=== PATIENT | female | born 1935 | race African-American/Black ===

== ENCOUNTER 2018-03-16 16:34 | Emergency (ER) | payer MEDICARE ==
[~2018-03-16] VITALS: Ht 160 cm; Wt 63.5 kg
[2018-03-16] MEDS ORDERED: ONDANSETRON HCL INJ 2 MG/ML VIAL IV STA ×2 (18:17→22:15)
[2018-03-16] MEDS ORDERED: SODIUM CHLORIDE 0.9% 1000ML 1,000 ML IV SCH (18:30)
[2018-03-16] MEDS ORDERED: MORPHINE SULFATE INJ 4 MG/ML INJ IV ONE (18:30)
--- NOTE | 2018-03-16 20:01 | Diagnostic Imaging Report ---
EXAMINATION: CXR 1 VEW - HOPD INDICATION: Nausea and vomiting. Headache. COMPARISON: None FINDINGS: TUBES and LINES: None. LUNGS: Lungs are moderate inflated. 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 Bilateral peribronchial cuffing. There is no evidence of pneumonia or pulmonary edema. PLEURA: No pleural effusion or pneumothorax. HEART AND MEDIASTINUM: The cardiomediastinal silhouette is unremarkable. There are atherosclerotic calcifications within the aorta. BONES AND SOFT TISSUES: No acute osseous lesion. Soft tissues are unremarkable. UPPER ABDOMEN: No free air under the diaphragm. There are cholecystectomy clips. IMPRESSION: Bilateral bronchial cuffing, likely viral etiology or reactive airway. Signed by: Dr. Vel Peguero M.D. on 03/16/2018 7:58 PM
--- NOTE | 2018-03-16 20:03 | Diagnostic Imaging Report ---
EXAMINATION: Head CT without contrast. HISTORY:Headache, nausea and vomiting. COMPARISON:None. TECHNIQUE: Multidetector axial images were obtained from the foramen magnum to the vertex without contrast. The images were reconstructed using brain and bone algorithms. Thin section brain images were reformatted into coronal and sagittal planes. Dose modulation, iterative reconstruction, and/or weight based adjustment of the mA/kV was utilized to reduce the radiation dose to as low as reasonably achievable. Intravenous contrast: None IMAGE QUALITY: Suboptimal evaluation due to motion-related streak artifacts. FINDINGS: Skull/scalp: No lytic or blastic. lesions. No surgical changes. Incidental atherosclerotic calcification of peripheral scalp vessels. Parenchyma: Suboptimal evaluation due to motion-related streak artifacts, despite the limitation no gross acute intracranial hemorrhage, mass or major vascular territorial infarct. Focal hypodensity in the left lateral aspect of midbrain and jeanna represents age indeterminate lacunar infarct versus an artifact. Nonspecific few, scattered supratentorial white matter patchy hypodensity are likely related to small vessel ischemic changes. Arteries: No density suggestive of thrombosis. Dural sinuses: No abnormal density suggestive of thrombosis. Ventricles: No hydrocephalus or displacement. Extra-axial spaces: No abnormal density. Brain volume: Generalized age-related cerebral volume loss. Craniocervical junction: No mass, Chiari malformation, or basilar invagination. Sella: No mass. Paranasal/mastoid sinuses: Imaged portions unremarkable. IMPRESSION: 1. Suboptimal evaluation due to motion-related streak artifacts, despite the limitation no gross acute intracranial abnormality. 2. Age indeterminate lacunar infarct vs artifact in left lateral aspect of midbrain/jeanna. 3. Generalized age-related cerebral volume loss and mild supratentorial white matter microvascular ischemic changes. Signed by: Dr. Debby Moody M.D. on 03/16/2018 7:59 PM
--- NOTE | 2018-03-16 20:07 | Diagnostic Imaging Report ---
EXAM: CT Abdomen and Pelvis WITHOUT contrast INDICATION: Complaining of nausea and vomiting headache. COMPARISON: None. TECHNIQUE: Abdomen and pelvis were scanned utilizing a multidetector helical scanner from the lung base to the pubic symphysis without administration of IV contrast. Absence of intravenous contrast decreases sensitivity for detection of focal lesions and vascular pathology. Coronal and sagittal reformations were obtained. Routine protocol was performed. IV CONTRAST: None ORAL CONTRAST: Water COMPLICATIONS: None. Allergic to iodine. RADIATION DOSE: Total DLP: 713.49 mGy*cm Estimated effective dose: (DLP x 0.015 x size factor) mSv CTDIvol has been reviewed. It is below the limits set by the Radiation Protocol Committee (RPC). FINDINGS: LINES and TUBES: None. LOWER THORAX: Moderate coronary artery calcifications. HEPATOBILIARY: No focal hepatic lesions. There is intra- and extra- hepatic biliary dilation likely post cholecystectomy resevoir effect. Common bile duct measures 1.1 cm with gradual tapering into the pancreatic head. GALLBLADDER: There are cholecystectomy clips. SPLEEN: No splenomegaly. PANCREAS: No focal masses or ductal dilatation. Pancreatic atrophy. ADRENALS: No adrenal nodules KIDNEYS/URETERS: Bilateral kidneys are mildly malrotated. No hydronephrosis. No cystic or solid mass lesions. No stones. GI TRACT: Moderate amount of stool in the rectosigmoid. Mild gastric antral wall thickening. Mild wall thickening of the one on. No abnormal distention, wall thickening, or evidence of bowel obstruction. Appendix is not clearly identified. There is however no fat stranding or adenopathy in the right lower quadrant to suggest appendicitis. PELVIC ORGANS/BLADDER: Unremarkable. LYMPH NODES: No lymphadenopathy. Scattered benign-appearing retroperitoneal lymph nodes. Prominent but benign-appearing bilateral inguinal lymph nodes. VESSELS: There is moderate atherosclerotic disease in the aorta and major arterial branches. PERITONEUM / RETROPERITONEUM: No free air or fluid. BONES: There are degenerative changes in the lumbar spine. SOFT TISSUES: There is a fat containing umbilical hernia. Anterior abdominal wall diastases with fatty atrophy of the rectus abdominis muscle. IMPRESSION: 1. Mild gastric antral wall thickening. This likely represents gastritis. 2. Common bile duct is dilated measuring 1.1 cm and is likely related to postcholecystectomy reservoir effect. Correlate with appropriate liver function test. Signed by: Dr. Vel Peguero M.D. on 03/16/2018 8:04 PM
[2018-03-16] MEDS ORDERED: KETOROLAC TROMETHAMINE 30 MG/ML VIAL IV STA (20:26)
[2018-03-16] MEDS ORDERED: METOCLOPRAMIDE HCL 10 MG/2ML VIAL IV ONE (20:30)
[2018-03-16] MEDS ORDERED: DIPHENHYDRAMINE HCL INJ 50 MG/ML VIAL IV ONE (20:30)
[2018-03-16 22:43] VITALS: BP 132/74
== END 2018-03-16 23:15 | disposition home or self-care (01) ==
LOC: FSED 16:34
DX: G43.909 Migraine, unspecified, not intractable, without status migrainosus (principal)
CPT/HCPCS: 70450; 71045; 74176; 80053; 81003; 82553; 84484; 85025; 93005; 99284; J1200; J1885; J2270; J2405; J2765; 74177

== ENCOUNTER 2018-07-07 16:49 | Emergency (ER) | payer MEDICARE ==
[~2018-07-07] VITALS: Ht 160 cm; Wt 63.5 kg
--- OUTSIDE RECORDS SUMMARY | 2018-07-07 16:52 | XMS REPORT ---
Author Author [facility] Address Unknown Phone Unavailable Care Team Providers Care Millwright Helper Name Role Phone Kranthi DURAN Unavailable Unavailable Problems This patient has no known problems. Allergies, Adverse Reactions, Alerts This patient has no known allergies or adverse reactions. Medications This patient has no known medications. Results Test Description Test Time Test Comments Text Results Atomic Results Result Comments CT ABD/PEL WITH CONTRAST-HOPD 2018-03-16 19:58:00 [facility] [address] [place] [address] Patient Name: BRIANNA LOVETT MR #: [id number] : 1935 Age/Sex: 82/F Req #: [id number] Adm Physician: Ordered by: GABBY WAGNER MD Report #: [id number] Location: [facility] Room/Bed: Procedure: [id number] HOPD/CT ABD/PEL WITH CONTRAST- HOPD Exam Date: 03/16/18 Exam Time: 1929 REPORT STATUS: Signed EXAM: CT Abdomen and Pelvis WITHOUT contrast INDICATION: Complaining of nausea and vomiting headache. COMPARISON: None. TECHNIQUE: Abdomen and pelvis were scanned utilizing a multidetector helical scanner from the lung base to the pubic symphysis without administration of IV contrast. Absence of intravenous contrast decreases sensitivity for detection of focal lesions and vascular pathology. Coronal and sagittal reformations were obtained. Routine protocol was performed. IV CONTRAST: None ORAL CONTRAST: Water COMPLICATIONS: None. Allergic to iodine. RADIATION DOSE: Total DLP: 713.49 mGy*cm Estimated effective dose: (DLP x 0.015 x size factor) mSv CTDIvol has been reviewed. It is below the limits set by the Radiation Protocol Committee (RPC). FINDINGS: LINES and TUBES: None. LOWER THORAX: Moderate coronary artery calcifications. HEPATOBILIARY: No focal hepatic lesions. There is intra- and extra- hepatic biliary dilation likely post cholecystectomy resevoir effect. Common bile duct measures 1.1 cm with gradual tapering into the pancreatic head. GALLBLADDER: There are cholecystectomy clips. SPLEEN: No splenomegaly. PANCREAS: No focal masses or ductal dilatation. Pancreatic atrophy. ADRENALS: No adrenal nodules KIDNEYS/URETERS: Bilateral kidneys are mildly malrotated. No hydronephrosis. No cystic or solid mass lesions. No stones. GI TRACT: Moderate amount of stool in the rectosigmoid. Mild gastric antral wall thickening. Mild wall thickening of the one on. No abnormal distention, wall thickening, or evidence of bowel obstruction. Appendix is not clearly identified. There is however no fat stranding or adenopathy in the right lower quadrant to suggest appendicitis. PELVIC ORGANS/BLADDER: Unremarkable. LYMPH NODES: No lymphadenopathy. Scattered benign-appearing retroperitoneal lymph nodes. Prominent but benign-appearing bilateral inguinal lymph nodes. VESSELS: There is moderate atherosclerotic disease in the aorta and major arterial branches. PERITONEUM / RETROPERITONEUM: No free air or fluid. BONES: There are degenerative changes in the lumbar spine. SOFT TISSUES: There is a fat containing umbilical hernia. Anterior abdominal wall diastases with fatty atrophy of the rectus abdominis muscle. IMPRESSION: 1. Mild gastric antral wall thickening. This likely represents gastritis. 2. Common bile duct is dilated measuring 1.1 cm and is likely related to postcholecystectomy reservoir effect. Correlate with appropriate liver function test. Signed by: Dr. Alfredo Peguero M.D. on 03/16/2018 8:04 PM Dictated By: ALFREDO PEGUERO MD 03 Transcribed By: MORELIA on 03/16/182003 COPY TO: GABBY WAGNER MD CXR 1 [facility] 2018-03-16 19:57:00 [place] [address] Patient Name: BRIANNA LOVETT MR #: [id number] : 1935 Age/Sex: 82/F Req #: [id number] Adm Physician: Ordered by: GABBY WAGNER MD Report #: [id number] Location: [facility] Room/Bed: Procedure: [id number] HOPD/CXR 1 VEW - HOPD Exam Date: 03/16/18 Exam Time: 1929 REPORT STATUS: Signed EXAMINATION: CXR 1 VEW - HOPD INDICATION: Nausea and vomiting. Headache. COMPARISON: None FINDINGS: TUBES and LINES: None. LUNGS: Lungs are moderate inflated. 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 Bilateral peribronchial cuffing. There is no evidence of pneumonia or pulmonary edema. PLEURA: No pleural effusion or pneumothorax. HEART AND MEDIASTINUM: The cardiomediastinal silhouette is unremarkable. There are atherosclerotic calcifications within the aorta. BONES AND SOFT TISSUES: No acute osseous lesion. Soft tissues are unremarkable. UPPER ABDOMEN: No free air under the diaphragm. There are cholecystectomy clips. IMPRESSION: Bilateral bronchial cuffing, likely viral etiology or reactive airway. Signed by: Dr. Alfredo Peguero M.D. on 03/16/2018 7:58 PM Dictated By: ALFREDO PEGUERO MD 57 Transcribed By: MORELIA on 03/16/181957 COPY TO: GABBY WAGNER MD CT BRAIN -HOPD 2018-03-16 19:53:00 [place] [address] Patient Name: BRIANNA LOVETT MR #: [id number] : 1935 Age/Sex: 82/F [facility] #: [id number] [facility] Physician: Ordered by: GABBY WAGNER MD Report #: [id number] Location: [facility] Room/Bed: Procedure: [id number] HOPD/CT BRAIN WO-HOPD Exam Date: 03/16/18 Exam Time: 1929 REPORT STATUS: Signed EXAMINATION: Head CT without contrast. HISTORY:Headache, nausea and vomiting. COMPARISON:None. TECHNIQUE: Multidetector axial images were obtained from the foramen magnum to the vertex without contrast. The images were reconstructed using brain and bone algorithms. Thin section brain images were reformatted into coronal and sagittal planes. Dose modulation, iterative reconstruction, and/or weight based adjustment of the mA/kV was utilized to reduce the radiation dose to as low as reasonably achievable. Intravenous contrast: None IMAGE QUALITY: Suboptimal evaluation due to motion-related streak artifacts. FINDINGS: Skull/scalp: No lytic or blastic. lesions. No surgical changes. Incidental atherosclerotic calcification of peripheral scalp vessels. Parenchyma: Suboptimal evaluation due to motion-related streak artifacts, despite the limitation no gross acute intracranial hemorrhage, mass or major vascular territorial infarct. Focal hypodensity in the left lateral aspect of midbrain and jeanna represents age indeterminate lacunar infarct versus an artifact. Nonspecific few, scattered supratentorial white matter patchy hypodensity are likely related to small vessel ischemic changes. Arteries: No density suggestive of thrombosis. Dural sinuses: No abnormal density suggestive of thrombosis. Ventricles: No hydrocephalus or displacement. Extra- axial spaces: No abnormal density. Brain volume: Generalized age-related cerebral volume loss. Craniocervical junction: No mass, Chiari malformation, or basilar invagination. Sella: No mass. Paranasal/mastoid sinuses: Imaged portions unremarkable. IMPRESSION: 1. Suboptimal evaluation due to motion-related streak artifacts, despite the limitation no gross acute intracranial abnormality. 2. Age indeterminate lacunar infarct vs artifact in left lateral aspect of midbrain/jeanna. 3. Generalized age-related cerebral volume loss and mild supratentorial white matter microvascular ischemic changes. Signed by: Dr. Debby Moody M.D. on 03/16/2018 7:59 PM Dictated By: DEBBY MOODY MD 58 Transcribed By: MORELIA on 03/16/181958 COPY TO: GABBY WAGNER MD
--- OUTSIDE RECORDS SUMMARY | 2018-07-07 16:52 | XMS REPORT | Clinical Summary ---
Author Author [facility] Address Unknown Phone Unavailable Care Team Providers Care Egg Candler Name Role Phone Romero Ruano MD PCP Allergies Comments Active Allergy Reactions Severity Noted Date Cephalexin 04/06/2016 Codeine 04/06/2016 Hydrocodone-Acetaminophen 04/06/2016 Iodine 09/20/2016 demerol Meperidine 04/06/2016 All nsaids Other 04/06/2016 Penicillins 04/06/2016 Shellfish Derived 09/21/2016 Sulfa (Sulfonamide 04/06/2016 Antibiotics) Tizanidine 04/06/2016 Medications End Date Status Medication Sig Dispensed Refills Start Date Active metoprolol succinate XL Take 25 mg by 0 (TOPROL-XL) 25 MG 24 hr mouth every tablet morning. Active allopurinol (ZYLOPRIM) Take 100 mg 0 100 MG tablet by mouth every morning. Active baclofen (LIORESAL) 10 MG Take 10 mg by 0 tablet mouth nightly. Active docusate sodium (COLACE) Take 200 mg 0 100 MG capsule by mouth 2 (two) times a day as needed for constipation. Active ergocalciferol Take 50,000 0 (ERGOCALCIFEROL) 50,000 units Every unit capsule Tuesday and every other Tuesday. Active fluticasone (FLONASE) 50 1 spray in 0 mcg/actuation nasal spray each nostril daily prn allergies Active gabapentin (NEURONTIN) Take 600 mg 0 600 MG tablet by mouth 3 (three) times a day. Active levothyroxine (SYNTHROID, Take 100 mcg 0 LEVOTHROID) 88 MCG tablet by mouth daily before breakfast. Active pravastatin (PRAVACHOL) Take 40 mg by 0 40 MG tablet mouth nightly. Active traMADol (ULTRAM) 50 mg Take 50 mg by 0 tablet mouth every 8 (eight) hours as needed for moderate pain. Active estradiol (ESTRACE) 0.5 Take 0.5 mg 1 MG tablet by mouth 6 every morning. Active CYANOCOBALAMIN, VITAMIN Take 1 tablet 0 B-12, (VITAMIN B-12 ORAL) by mouth 3 (three) times a week. Active loratadine (CLARITIN) 10 Take 10 mg by 0 mg tablet mouth every morning. Active SUMAtriptan (IMITREX) 25 Take 1 tablet 15 tablet 11 MG tablet (25 mg total) 6 by mouth once as needed for migraine. May repeat in 2 hours if unresolved. Do not exceed 3 doses in 1 week Active pantoprazole (PROTONIX) Take 40 mg by 3 40 MG EC tablet mouth 2 (two) 7 times a day. Take 1 tab before breakfast and 1 at bedtime. Active montelukast (SINGULAIR) Take 10 mg by 1 10 mg tablet mouth every 7 morning. Active VOLTAREN 1 % gel APPLY 1 0 TOPICAL GRAM 7 3 TIMES A DAY as needed for pain Active LORAZepam (ATIVAN) 0.5 MG Take 0.5 mg 2 tablet by mouth 7 daily as needed for anxiety. 12/23/2017 Discontinued sertraline (ZOLOFT) 100 Take 100 mg 2 MG tablet by mouth 7 every morning. 01/13/2018 Discontinued vortioxetine (TRINTELLIX) Take 20 mg by 0 20 mg tablet mouth daily. 01/13/2018 Discontinued furosemide (LASIX) 40 mg Take 40 mg by 0 tablet mouth 2 (two) times a day. 01/13/2018 Discontinued potassium chloride Take 20 mEq 0 (KLOR-CON) 20 mEq packet by mouth 2 (two) times a day. 01/13/2018 Discontinued aspirin (ECOTRIN) 81 MG Take 81 mg by 0 enteric coated tablet mouth daily. Active Problems Problem Noted Date Acute renal failure 09/21/2016 Rhabdomyolysis 09/21/2016 Hypopotassemia 09/21/2016 Weakness 09/20/2016 Osteoarthritis of cervical spine 04/06/2016 Headache 04/06/2016 Memory impairment 04/06/2016 Neck pain 04/06/2016 Shoulder pain 04/06/2016 Immunizations Name Dates Previously Given Next Due FLUZONE HIGH-DOSE PF 03/15/2017 Family History Medical History Relation Name Comments Diabetes Father Heart disease Father Prostate cancer Father Alzheimer's disease Mother Heart disease Mother Migraines Mother Stroke Mother Relation Name Status Comments Father (Age 78) Mother (Age 92) Social History Date Tobacco Use Types Packs/Day Years Used Never Smoker Smokeless Tobacco: Never Used Alcohol Use Drinks/Week oz/Week Comments No Sex Assigned at Date Recorded Not on file Industry Job Start Date Occupation Not on file Not on file Not on file Travel End Travel History Travel Start No recent travel history available. Last Filed Vital Signs Time Taken Vital Sign Reading - Blood Pressure - - Pulse - - Temperature - - Respiratory Rate - - Oxygen Saturation - - Inhaled Oxygen - Concentration 12/23/2017 9:04 AM CDT Weight 65.8 kg (145 lb) 12/23/2017 9:04 AM CDT Height 160 cm (5' 3") 12/23/2017 9:04 AM CDT Body Mass Index 25.69 Plan of Treatment Health Maintenance Due Date Last Done Comments SHINGLES VACCINES (1 of 1987 2) PNEUMOCOCCAL 2002 POLYSACCHARIDE VACCINE AGE 65 AND OVER PNEUMOCOCCAL-13 2002 INFLUENZA VACCINE 01/11/2018 03/15/2017 Results Not on fileafter 07/06/2017 Insurance Payer Benefit Subscriber ID Type Phone Address Plan / Group MEDICARE MEDICARE xxxxxxxxxx [place] MEDICAID MEDICAID xxxxxxxxx Medicaid Advance Directives Patient has advance care planning documents, and code status on file. For more i nformation, please contact: Artemio Castro [address] [facility] [place] [address] Date Inactivated Comments Code Status Date Activated 09/24/2016 2:06 PM Full Code 09/20/2016 4:42 PM Code Status decision reached by: Patient
[2018-07-07] MEDS ORDERED: LORAZEPAM0.5 MG PO (17:53)
[2018-07-07] MEDS ORDERED: LASIX40 MG PO (17:53)
[2018-07-07] MEDS ORDERED: TRINTELLIX PO (17:53)
[2018-07-07] MEDS ORDERED: LEVOTHYROXINE100 MCG PO (17:53)
[2018-07-07] MEDS ORDERED: CLARITIN-D 241 EACH PO (17:53)
[2018-07-07] MEDS ORDERED: GABAPENTIN300 MG PO (17:53)
[2018-07-07] MEDS ORDERED: BACLOFEN10 MG PO (17:53)
[2018-07-07] MEDS ORDERED: PANTOPRAZOLE SO40 MG PO (17:53)
--- NOTE | 2018-07-07 17:58 | Diagnostic Imaging Report ---
Frontal and lateral views of the chest. HISTORY: Fell out of bed, pain left side of chest COMPARISON: Chest radiograph March 16, 2018 DISCUSSION: Soft tissue attenuation partially limits sensitivity of the exam. Lungs: Persistent elevation of the right hemidiaphragm. Mild right basilar atelectasis. No evidence of a consolidative pneumonia or pulmonary alveolar edema. Pleura: No pleural effusion or pneumothorax. Heart and mediastinum: The cardiomediastinal silhouette appears unremarkable. Bones and soft tissues: Diffusely decreased mineralization of the osseous structures limits bone detail. Accentuation of the thoracic kyphosis, with multilevel degenerative disc changes and osseous remodeling. No acute displaced rib fracture, within the limitations of this exam. IMPRESSION: 1. Mild bibasilar atelectasis. 2. Diffuse osseous demineralization. Signed by: Dr. Rubén Roth D.O., M.M.M. on 07/07/2018 5:55 PM
[2018-07-07] MEDS ORDERED: HYDROCODONE/APAP 5MG-325MG TAB PO ONE (18:30)
== END 2018-07-07 19:06 | disposition home or self-care (01) ==
LOC: FSED 16:49
DX: R07.89 Other chest pain (principal); W06.XXXA Fall from bed, initial encounter; Y93.84 Activity, sleeping; Y92.003 Bedroom of unspecified non-institutional (private) residence as the place of occurrence of the external cause; E03.9 Hypothyroidism, unspecified
CPT/HCPCS: 71046; 99283

== ENCOUNTER → 2019-01-03 | Outpatient (CLI) | payer MEDICARE ==
[~2019-01-03] MED LIST: BACLOFEN10 MG PO; CLARITIN-D 241 EACH PO; GABAPENTIN300 MG PO; LASIX40 MG PO; LEVOTHYROXINE100 MCG PO; LORAZEPAM0.5 MG PO; PANTOPRAZOLE SO40 MG PO; TRINTELLIX PO
--- NOTE | 2019-01-03 13:42 | Diagnostic Imaging Report ---
EXAMINATION: PA and lateral views of the chest. COMPARISON: AP chest 03/16/2018 CLINICAL HISTORY: CHF DISCUSSION: Lines/tubes: None. Lungs: Lungs are well-inflated. No evidence of consolidation or pulmonary edema. Pleura: There is no pleural effusion or pneumothorax. Stable elevation of the right hemidiaphragm. Heart and mediastinum: Cardiomediastinal silhouette is unremarkable. Pulmonary vasculature is normal. Tortuous aorta. Bones and soft tissues: No acute bony abnormalities. Degenerative changes in the thoracic spine IMPRESSION: No acute cardiopulmonary abnormalities. Signed by: Dr. Dipak Tineo M.D. on 01/03/2019 1:38 PM
== END ==
LOC: RAD 11:06
PROVIDERS: ATTEND Internal Medicine
DX: I50.32 Chronic diastolic (congestive) heart failure (principal); I10 Essential (primary) hypertension
CPT/HCPCS: 71046